=== PATIENT | female | born 1945 | race Caucasian/White ===

== ENCOUNTER → 2025-01-29 | Outpatient (CLI) | payer OTHER, SELFPAY ==
[2025-01-29 12:41] LABS: Hematocrit 45.8 % (37-47); Hemoglobin 14.7 g/dL (12.0-15.0); Immature Granulocytes Count 0.050 X10^3/uL (0.0-0.0); Mean Corp Hgb Conc 32.1 g/dL (32-36); Mean Corpuscular Volume 95.4 fL (81-99); Mean Platelet Vol. 11.7 fl (6.2-12.0); NRBC Flagged by Analyzer 0 % (0-5); Platelet Count 188 K/mm3 (150-450); RBC Distribution Width CV 13.2 % (11.6-14.6); RBC Distribution Width SD 46.9 fl (35.1-43.9); Red Blood Count 4.80 M/mm3 (4.2-5.4); White Blood Count 8.8 K/mm3 (4.4-11.0)
[2025-01-29 13:33] LABS: AST(SGOT) 47 U/L (<=31); Alanine Aminotransfer ALT/SGPT 87 U/L (<=34); Albumin, Serum 4.1 g/dL (3.4-4.8); Alkaline Phosphatase 169 U/L (35-104); Anion Gap 12 (5-15); BUN 18 mg/dL (4-19); BUN/Creat Ratio 22.2 RATIO (10-20); Calcium,Total 10.3 mg/dL (7.6-11.0); Carbon Dioxide 26.3 mmol/L (21.0-32.0); Chloride 105 mmol/L (98-108); Cholesterol 325 mg/dL (<=200); Ferritin 598 ng/mL (22-378); Globulin 3.3 g/dL (2.2-4.2); Glucose 81 mg/dL (70-99); Low Density Lipoprotein Calc. 196 mg/dL; Potassium 4.3 mmol/L (3.3-5.1); Triglycerides 79 mg/dL; Very Low Density Lipoprotein 16 mg/dL (5-40); Vitamin B12 443 pg/mL (180-914); Vitamin D,25 Hydroxy 59.3 ng/mL (30-100); cholesterol:hdl ratio screen 2.88
[2025-01-29 13:48] LABS: Iron 85 ug/dL (50-170)
== END | disposition home or self-care (01) ==
LOC: BFHLAB 09:10
PROVIDERS: PCP Nurse Practitioner Family; Visit Provider Nurse Practitioner Family
DX: E78.2 Mixed hyperlipidemia (principal); I10 Essential (primary) hypertension; E55.9 Vitamin D deficiency, unspecified; E53.8 Deficiency of other specified B group vitamins; D50.9 Iron deficiency anemia, unspecified; E03.9 Hypothyroidism, unspecified
CPT/HCPCS: 36415; 80053; 80061; 82306; 82607; 82728; 83540; 84439; 84443; 85025

== ENCOUNTER → 2025-02-09 | Outpatient (CLI) | payer OTHER, SELFPAY | END | disposition home or self-care (01) | LOC: LAB.FUTURE 10:35 | PROVIDERS: PCP Nurse Practitioner Family; Visit Provider Nurse Practitioner Family | DX: R19.7 Diarrhea, unspecified (principal) | CPT/HCPCS: 82274; 87177; 87209; 87493; 87506 ==

== ENCOUNTER → 2025-03-12 | Outpatient (CLI) | payer MEDICARE, SELFPAY ==
--- NOTE | 2025-03-12 11:38 | RAD_ITS ---
PROCEDURE: L/S SPINE MIN 4 VIEWS 03/12/2025 REASON FOR EXAM: BACK AND LEG PAIN, UPPER LEGS FEEL LIKE JELLY TECHNIQUE: L/S SPINE MIN 4 VIEWS COMPARISON: None FINDINGS: Four views of the lumbosacral spine were obtained and demonstrate diffuse osteopenia of the lumbar spine and sacrum. There are no fractures of the sacrum. There are 5 lumbar-type vertebral bodies below the last set of paired ribs. There is a very subtle levoscoliosis of the lumbar spine. 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 There is 3 mm of anterolisthesis of L4 in relationship to L5. There is 2 mm of retrolisthesis of L3 in relationship to L4 and 1-2 mm of retrolisthesis of L1 in relationship to L2. Moderate degenerative changes of the lumbar spine are noted. There is disc space narrowing involving all of the lumbar disc spaces. There does appear to be some bony encroachment of the neural foramina at all levels. 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 Surgical clips are seen in the gallbladder fossa. RAD/L/S Spine Min 4 Views IMPRESSION: Degenerative disc disease is noted involving all of the lumbar discs. There is bony encroachment on the neural foramina. Degenerative changes of the lumbar spine are noted. RECOMMENDATION: MRI of the lumbar spine may be of value, if clinically warranted, to further ev aluate the disc spaces and nerve roots as well as the soft tissue structures in this patient who has abnormal plain film findings , low back pain and radiculopathy type symptoms. Reading Location: [id number]
== END | disposition home or self-care (01) ==
LOC: MTRAD 11:36
PROVIDERS: PCP Nurse Practitioner Family; Referring Provider Nurse Practitioner Family; Visit Provider Nurse Practitioner Family
DX: M54.50 Low back pain, unspecified (principal)
CPT/HCPCS: 72110